=== PATIENT | male | born 1955 | race African-American/Black ===

== ENCOUNTER 2017-04-25 10:52 | Inpatient (IN) | payer OTHER, MEDICAID ==
[~2017-04-25] VITALS: Ht 190.5 cm; Wt 84.4 kg
[~2017-04-25 10:52] MED LIST: CHOL100044 PO; CYAN10009 PO; FOLI-43 PO; NAPR-681 PO; SENN-22 PO
[2017-04-25 12:00] LABS: BASOPHILS % 0.6 % (0.0-2.0); EOSINOPHILS % 0.2 % (0.0-5.0); HEMOGLOBIN. 12.5 g/dL (14.0-18.0); LYMPHOCYTES % 15.7 % (20.0-50.0); MEAN CORPUSCULAR VOLUME 109.5 fL (80.0-94.0); MEAN PLATELET VOLUME 7.8 fl (7.4-10.4); MONOCYTES % 9.2 % (2.0-8.0); NEUTROPHILS % 74.3 % (40.0-76.0); PLATELET 108 x1000/uL (130-400); RED BLOOD CELL COUNT 3.38 mill/uL (4.7-6.1); RED CELL DISTRIBUTION WIDTH 13.4 % (11.6-14.6)
[2017-04-25] MEDS ORDERED: LEVETIRACETAM 1,000 MG in SODIUM CHLORIDE 0.9% 100 ML IV ONE (12:00)
[2017-04-25 12:06] LABS: INR 1.1; PROTHROMBIN TIME 11.9 sec (9.4-11.6)
[2017-04-25 12:13] LABS: CARBON DIOXIDE 16 mEq/L (21-32); CHLORIDE 97 mEq/L (98-107); CREATINE KINASE 213 IU/L (39-308); ETHANOL BLOOD < 10 mg/dL; TROPONIN I < 0.02 ng/mL (0.00-0.04)
[2017-04-25] MEDS ORDERED: LEVETIRACETAM 1,000 MG in SODIUM CHLORIDE 0.9% 100 ML IV NR (12:15)
[2017-04-25 12:22] LABS: *AMPHETAMINES SCREEN URINE NEGATIVE (NEGATIVE); *BARBITURATES SCREEN URINE NEGATIVE (NEGATIVE); *BENZODIAZEPINES SCREEN URINE PRESUMTIVE POSITIVE (NEGATIVE); *COCAINE SCREEN URINE NEGATIVE (NEGATIVE); CANNABINOID URINE SCREEN PRESUMTIVE POSITIVE (NEGATIVE); METHADONE URINE SCREEN NEGATIVE (NEGATIVE); OPIATES URINE SCREEN NEGATIVE (NEGATIVE); PHENCYCLIDINE URINE SCREEN NEGATIVE (NEGATIVE)
[2017-04-25 12:36] LABS: CLARITY URINE TURBID (CLEAR); COLOR URINE ORANGE (YELLOW); GLUCOSE URINE NEGATIVE (NEGATIVE); KETONES URINE NEGATIVE (NEGATIVE); LEUKOCYTE ESTERASE URINE TRACE (NEGATIVE); NITRITE URINE POSITIVE (NEGATIVE); OCCULT BLOOD URINE 2+ (NEGATIVE); PROTEIN URINE 4+ (NEGATIVE); SPECIFIC GRAVITY URINE 1.026 (1.005-1.030)
[2017-04-25] MEDS ORDERED: KCL 10MEQ/50ML PREMIX 50 ML IV ONE (14:30)
[2017-04-25] MEDS ORDERED: POTASSIUM CHLORIDE 20MEQ TABLET SR PO ONE (14:30)
[2017-04-25] MEDS ORDERED: LORAZEPAM 2MG/ML CPJ IV ONE (17:00)
[2017-04-25 19:30] VITALS: BP 151/103
[2017-04-25] MEDS ORDERED: CEFTRIAXONE 1 G PREMIX 50 ML IV SCH (19:45)
[2017-04-25] MEDS ORDERED: ACETAMINOPHEN 325MG TABLET PO PRN (19:45)
[2017-04-25] MEDS ORDERED: MAGNESIUM/ALUMINUM HYDROXIDE/SIMETHICONE 30ML UDC PO PRN (19:45)
[2017-04-25] MEDS ORDERED: LORAZEPAM 2MG/ML CPJ IV PRN (19:45)
[2017-04-25] MEDS ORDERED: ONDANSETRON HCL 4MG/2ML VIAL IV PRN (19:45)
[2017-04-25] MEDS ORDERED: IPRATROPIUM/ALBUTEROL 0.5-3(2.5)MG/3ML NEB INH PRN (19:45)
[2017-04-25 20:00] VITALS: BP 151/103
[2017-04-25] MEDS ORDERED: HYDR10SY11 PO (20:06)
[2017-04-25] MEDS ORDERED: LEVE500T19 PO (20:06)
[2017-04-25] MEDS ORDERED: MVI, ADULT NO.1 10 ML, FOLIC ACID 1 MG, THIAMINE HCL 100 MG in SODIUM CHLORIDE 0.9% 1,0... IV SCH ×4 (21:00)
[2017-04-25] MEDS ORDERED: LEVETIRACETAM 500MG/5ML CUP PO SCH (21:00)
[2017-04-25] MEDS: CHLORDIAZEPOXIDE 25MG CAPSULE PO SCH (21:27)
[2017-04-25] MEDS: CLONIDINE 0.1MG TABLET PO PRN (21:28)
[2017-04-25] MEDS: CEFTRIAXONE 1 G PREMIX 50 ML IV SCH (21:31)
[2017-04-25 23:27] LABS: CREATINE KINASE 223 IU/L (39-308); CREATINE KINASE MB FRACTION 0.9 ng/mL (0.5-3.6); TROPONIN I < 0.02 ng/mL (0.00-0.04)
[2017-04-26] VITALS: BP 141/94
[2017-04-26] MEDS ORDERED: HYDROXYZINE HCL 10 MG PO SCH (02:00)
[2017-04-26 04:00] VITALS: BP 148/89
[2017-04-26] MEDS ORDERED: HYDROXYZINE 10 MG TABLET PO PRN (05:00)
[2017-04-26] MEDS: CHLORDIAZEPOXIDE 25MG CAPSULE PO SCH ×3 (05:44→21:00)
[2017-04-26 06:37] LABS: CARBON DIOXIDE 24 mEq/L (21-32); CHLORIDE 100 mEq/L (98-107); CREATINE KINASE 198 IU/L (39-308); CREATINE KINASE MB FRACTION 0.7 ng/mL (0.5-3.6); LDL CHOLESTEROL 42 mg/dL (5-100); TROPONIN I < 0.02 ng/mL (0.00-0.04)
[2017-04-26 06:50] LABS: BASOPHILS % 0.3 % (0.0-2.0); EOSINOPHILS % 0.6 % (0.0-5.0); HEMATOCRIT. 34.3 % (42.0-52.0); LYMPHOCYTES % 19.3 % (20.0-50.0); MEAN CORPUSCULAR HEMOGLOBIN 37.8 pg (28.0-32.0); MEAN CORPUSCULAR VOLUME 107.9 fL (80.0-94.0); MEAN PLATELET VOLUME 8.5 fl (7.4-10.4); MONOCYTES % 13.4 % (2.0-8.0); NEUTROPHILS % 66.4 % (40.0-76.0); PLATELET 100 x1000/uL (130-400); RED BLOOD CELL COUNT 3.18 mill/uL (4.7-6.1); RED CELL DISTRIBUTION WIDTH 12.9 % (11.6-14.6)
[2017-04-26 07:50] VITALS: BP 145/94
[2017-04-26 08:03] LABS: HDL CHOLESTEROL 141 mg/dL (40-59)
[2017-04-26] MEDS: CYANOCOBALAMIN 1000MCG TABLET PO SCH (09:00)
[2017-04-26] MEDS: NAPROXEN 500MG TABLET PO SCH ×2 (09:00→18:30)
[2017-04-26] MEDS ORDERED: FOLIC ACID 1MG TABLET PO SCH (09:00)
[2017-04-26] MEDS: MULTIVITAMINS,THER W-MINERALS TABLET PO SCH (10:33)
[2017-04-26] MEDS: LEVETIRACETAM 500MG TABLET PO SCH ×2 (10:33→18:29)
[2017-04-26] MEDS: THIAMINE HCL 100MG TABLET PO SCH (10:33)
[2017-04-26] MEDS: FOLIC ACID 1MG TABLET PO SCH (10:33)
[2017-04-26] MEDS ORDERED: POTASSIUM CHLORIDE 20MEQ TABLET SR PO SCH ×2 (10:45→14:45)
[2017-04-26 12:00] VITALS: BP 139/99
[2017-04-26] MEDS: CHOLECALCIFEROL (D3) 1000 UNIT TABLET PO SCH (13:13)
[2017-04-26 16:00] VITALS: BP 149/99
[2017-04-26] MEDS ORDERED: MAGNESIUM 2 G PREMIX 50 ML IV NR (16:00)
[2017-04-26 20:00] VITALS: BP 153/107
[2017-04-26] MEDS: CEFTRIAXONE 1 G PREMIX 50 ML IV SCH (20:55)
[2017-04-26] MEDS: CLONIDINE 0.1MG TABLET PO PRN (20:55)
[2017-04-27 08:22] VITALS: BP 130/94
[2017-04-27] MEDS: NAPROXEN 500MG TABLET PO SCH ×2 (09:00→18:03)
[2017-04-27] MEDS: CYANOCOBALAMIN 1000MCG TABLET PO SCH (09:00)
[2017-04-27] MEDS: MULTIVITAMINS,THER W-MINERALS TABLET PO SCH (09:00)
[2017-04-27] MEDS: THIAMINE HCL 100MG TABLET PO SCH (09:00)
[2017-04-27] MEDS: FOLIC ACID 1MG TABLET PO SCH (09:00)
[2017-04-27] MEDS: CHOLECALCIFEROL (D3) 1000 UNIT TABLET PO SCH (09:00)
[2017-04-27] MEDS: LEVETIRACETAM 500MG TABLET PO SCH ×2 (09:00→18:03)
[2017-04-27 10:00] VITALS: BP 132/92
[2017-04-27 12:00] VITALS: BP 134/89
[2017-04-27 13:18] LABS: BASOPHILS % 0.3 % (0.0-2.0); HEMATOCRIT. 36.3 % (42.0-52.0); HEMOGLOBIN. 12.5 g/dL (14.0-18.0); LYMPHOCYTES % 21.4 % (20.0-50.0); MEAN CORPUSCULAR VOLUME 107.6 fL (80.0-94.0); MEAN PLATELET VOLUME 8.3 fl (7.4-10.4); MONOCYTES % 15.9 % (2.0-8.0); NEUTROPHILS % 61.4 % (40.0-76.0); PLATELET 99 x1000/uL (130-400); RED BLOOD CELL COUNT 3.37 mill/uL (4.7-6.1); RED CELL DISTRIBUTION WIDTH 13.1 % (11.6-14.6)
[2017-04-27 13:41] LABS: CARBON DIOXIDE 26 mEq/L (21-32); CHLORIDE 100 mEq/L (98-107)
[2017-04-27 16:21] VITALS: BP 139/99
[2017-04-27 18:00] VITALS: BP 128/86
[2017-04-27 20:00] VITALS: BP 134/103
[2017-04-27] MEDS: CEFTRIAXONE 1 G PREMIX 50 ML IV SCH (21:34)
[2017-04-27] MEDS: CHLORDIAZEPOXIDE 25MG CAPSULE PO SCH (21:34)
[2017-04-28] VITALS: BP 139/103
[2017-04-28 04:00] VITALS: BP 146/109
[2017-04-28] MEDS: CHLORDIAZEPOXIDE 25MG CAPSULE PO SCH ×2 (06:36→13:07)
[2017-04-28 07:18] LABS: MEAN CORPUSCULAR HEMOGLOBIN 37.2 pg (28.0-32.0); MEAN CORPUSCULAR VOLUME 108.3 fL (80.0-94.0); MEAN PLATELET VOLUME 8.3 fl (7.4-10.4); PLATELET 99 x1000/uL (130-400); RED BLOOD CELL COUNT 3.23 mill/uL (4.7-6.1)
[2017-04-28 07:52] LABS: CARBON DIOXIDE 27 mEq/L (21-32); CHLORIDE 102 mEq/L (98-107)
[2017-04-28 08:00] VITALS: BP 131/97
[2017-04-28] MEDS: NAPROXEN 500MG TABLET PO SCH (08:55)
[2017-04-28] MEDS: LEVETIRACETAM 500MG TABLET PO SCH (08:55)
[2017-04-28] MEDS: MULTIVITAMINS,THER W-MINERALS TABLET PO SCH (08:55)
[2017-04-28] MEDS: CHOLECALCIFEROL (D3) 1000 UNIT TABLET PO SCH (08:55)
[2017-04-28] MEDS: FOLIC ACID 1MG TABLET PO SCH (08:56)
[2017-04-28] MEDS: THIAMINE HCL 100MG TABLET PO SCH (08:56)
[2017-04-28] MEDS: CYANOCOBALAMIN 1000MCG TABLET PO SCH (08:56)
[2017-04-28 10:39] LABS: PLATELET ESTIMATE SLIGHTLY DECREASED
[2017-04-28 12:00] VITALS: BP 140/99
[2017-04-28] MEDS ORDERED: POTASSIUM CHLORIDE 20MEQ TABLET SR PO NR (13:30)
[2017-04-28 13:44] VITALS: BP 140/99
== END 2017-04-28 14:56 | disposition home or self-care (01) | DRG 101 ==
LOC: ER 11:00 → 5WST 16:29 → ENRESERV 17:56
PROVIDERS: ADMIT Internal Medicine; ATTEND Internal Medicine
DX: G40.409 Other generalized epilepsy and epileptic syndromes, not intractable, without status epilepticus (principal); D69.6 Thrombocytopenia, unspecified; E87.8 Other disorders of electrolyte and fluid balance, not elsewhere classified; F10.239 Alcohol dependence with withdrawal, unspecified; N39.0 Urinary tract infection, site not specified; K70.30 Alcoholic cirrhosis of liver without ascites; R74.0 Nonspecific elevation of levels of transaminase and lactic acid dehydrogenase [LDH]; E87.6 Hypokalemia; F17.210 Nicotine dependence, cigarettes, uncomplicated; Z79.899 Other long term (current) drug therapy; Z91.14 Patient's other noncompliance with medication regimen
CPT/HCPCS: 36415; 51702; 70450; 70551; 71010; 80048; 80053; 80061; 80305; 81001; 82550; 82553; 83735; 84443; 84484; 85025; 85610; 87086; 87493; 93005; 93970; 96365; 96375; 97162; 97165; 99285; G0482; J0696; J1953; J2060; J3411; J3475; J3490; J7030; J7050; A4315

== ENCOUNTER 2017-05-08 02:48 | Emergency (ER) | payer OTHER, MEDICAID ==
[~2017-05-08] VITALS: Ht 190.5 cm; Wt 51.0 kg
[~2017-05-08 02:48] MED LIST changes: +HYDR10SY11 PO; +LEVE500T19 PO; -SENN-22 PO
[2017-05-08] MEDS ORDERED: LIDOCAINE HCL 1% 20ML VIAL (Pyxis) INJ INFIL ONE (04:00)
[2017-05-08] MEDS ORDERED: SODIUM CHLORIDE 0.9% 1,000 ML IV ONE (06:00)
[2017-05-08] MEDS ORDERED: PIPERACILLIN SODIUM/TAZOBACTAM 4.5 G in DEXT 5% WATER 100 ML IV SCH (07:30)
[2017-05-08] MEDS ORDERED: TETANUS, DIPHTHERIA, PERTUSSIS VAC/PF 0.5ML (>7YR OLD) IM ONE (07:45)
[2017-05-08 10:20] VITALS: BP 109/63
== END 2017-05-08 10:50 | disposition short-term general hospital (02) ==
LOC: ER 02:48
DX: S92.354B Nondisplaced fracture of fifth metatarsal bone, right foot, initial encounter for open fracture (principal); G40.909 Epilepsy, unspecified, not intractable, without status epilepticus; W01.198A Fall on same level from slipping, tripping and stumbling with subsequent striking against other object, initial encounter; Y93.89 Activity, other specified; Y92.012 Bathroom of single-family (private) house as the place of occurrence of the external cause
CPT/HCPCS: 12001; 36415; 73630; 90715; 96361; 96365; 99285; G0482; J2543; J3490; J7030; J7060